=== PATIENT | female | born 1995 | race American Indian/Alaskan Native ===

== ENCOUNTER 2021-09-24 10:48 | Outpatient (CLI) | payer MEDICAID ==
[2021-09-24 11:20] VITALS: BP 113/65
--- NOTE | 2021-09-24 13:42 | Ultrasound Report ---
ULTRASOUND OB VELOCIMETRY UMBILICAL ARTERY HISTORY: Cord arterial Doppler, history of loss of end-diastolic flow TECHNIQUE: Transabdominal ultrasound with color and spectral Doppler imaging COMPARISON: 09/05/2021 FINDINGS: Multiple segments of the umbilical cord were evaluated. heart rate measures 132 bpm. The spectr al Doppler waveforms again show intermittent loss of end-diastolic flow and reversal of flow in some segments of the umbilical cord. The average pulsatility index measures 35.6. Signer Name: Kenny Muñiz Jr, MD Signed: 09/24/2021 1:38 PM Workstation Name: [id number]
--- NOTE | 2021-09-24 14:31 | Ultrasound Report ---
ULTRASOUND BIOPHYSICAL PROFILE ULTRASOUND OB LIMITED INDICATION: bpp/val[facility] well being TECHNIQUE: Transabdominal ultrasound imaging. COMPARISON: 09/05/2021 FINDINGS: breathing movement = 2 Gross body movement = 2 tone = 2 Qualitative amniotic fluid volume = 2 Total biophysical score = 8/8 Amniotic fluid index is 18.9 cm. heart rate is 132 beats per minute. IMPRESSION: biophysical profile /. Signer Name: Kenny Muñiz Jr, MD Signed: 09/24/2021 2:26 PM Workstation Name: [id number]
== END 2021-09-24 14:55 | disposition left against medical advice (07) ==
LOC: TRG 10:48 → APU 10:49 → TRG 14:55
PROVIDERS: ATTEND Obstetrics & Gynecology
DX: Z34.93 Encounter for supervision of normal pregnancy, unspecified, third trimester (principal); Z3A.31 31 weeks gestation of pregnancy
CPT/HCPCS: 59025; 76815; 76819; 76820

== ENCOUNTER 2021-09-26 11:03 | Outpatient (CLI) | payer MEDICAID ==
[2021-09-26 11:34] VITALS: BP 120/75
[2021-09-26 12:16] LABS: Bilirubin,Urine NEG (Negative); Blood,Urine NEG (Negative); Color,Urine Yellow (Yellow); Mucus,Urine FEW /HPF; Protein,Urine <15 mg/dL mg/dL (Negative); Urobilinogen,Urine < 2.0 mg/dL (<2.0)
[2021-09-26] MEDS ORDERED: LACTATED RINGERS 500 ML IV ONE (13:18)
== END 2021-09-26 12:49 | disposition home or self-care (01) ==
LOC: TRG 11:03 → APU 11:06 → TRG 12:49
PROVIDERS: ATTEND Obstetrics & Gynecology
DX: O36.5930 Maternal care for other known or suspected poor fetal growth, third trimester, not applicable or unspecified (principal); Z3A.32 32 weeks gestation of pregnancy
CPT/HCPCS: 59025; 81001

== ENCOUNTER 2021-10-10 15:00 | Outpatient (CLI) | payer MEDICAID ==
[2021-10-09 17:40] LABS: Hematocrit 36.2 % (30.3-42.9); Hemoglobin 11.4 gm/dl (10.1-14.3); Mean Corpuscular HGB Conc 32 % (30-34); Mean Corpuscular Volume 86 fl (79-97); Platelet Count 230 K/mm3 (140-440); Red Blood Count 4.24 M/mm3 (3.65-5.03); Red Cell Distribution Width 15.7 % (13.2-15.2)
[~2021-10-10 15:00] MED LIST: ACETAMINOPHEN 325 MG TAB PO PRN; AMPICILLIN/NS 1 GM/50 ML 1 GM/50 ML BAG IV SCH; AMPICILLIN/NS 2 GM/100 ML 2 GM/100 ML BAG IV ONE; BICITRA ORAL LIQD 30ML PO NR; BUPIVACAINE/PF (0.5%) 5 MG/1 ML 30 ML VIAL INFILTRATI ONE; BUTORPHANOL 2 MG/1 ML INJ IV PRN; CARBOPROST TROMETHAMINE 250 MCG/1 ML INJ IM PRN; DINOPROSTONE 10 MG VAG SUPP VG ONE; FAMOTIDINE 20 MG/2 ML INJ IV NR; HYDROcodone/ACETAMINOPHEN 5-325 MG TAB PO PRN; IBUPROFEN 600 MG TAB PO PRN; IBUPROFEN 800 MG TAB PO PRN; KETOROLAC 30 MG/1 ML INJ IV PRN; KETOROLAC 30 MG/1 ML INJ ONE; LACTATED RINGERS 1,000 ML IV SCH; LACTATED RINGERS 1,000 ML ONE; LANOLIN/ZINC/DIMETHICONE (LANSINOH) 7 GM TP PRN; LIDOCAINE (2%) 20 MG/1 ML VIAL 20 ML MDV INFILTRATI ONE; LOPERAMIDE 2 MG CAP PO PRN; METHYLERGONOVINE MALEATE 0.2 MG/ML VIAL IM PRN; MINERAL OIL 30 ML ORAL LIQD PO PRN; MORPHINE 2 MG/1 ML INJ IV PRN; MORPHINE 4 MG/1 ML INJ IV PRN; NALOXONE 0.4 MG/1 ML INJ IV PRN; NALOXONE 2 MG/2 ML INJ IV PRN; NalbUPHINE 10 MG/1 ML INJ IV PRN; ONDANSETRON 4 MG/2 ML INJ IV PRN; ONDANSETRON 4 MG/2 ML INJ ONE; OXYTOCIN 10 UNIT/1 ML INJ IM PRN; OXYTOCIN DRIP 30 UNITS/500 ML BAG IV SCH; PHENYLEPHRINE 10 MG/1 ML INJ SDV ONE; SODIUM CHLORIDE 0.9% 100 ML ONE; SODIUM CHLORIDE 0.9% IRR 1,500 ML BOTTLE IR ONE; TERBUTALINE 1 MG/1 ML INJ SUB-Q PRN; WATER FOR IRRIG STERILE 1,500 ML BOTTLE IR ONE; WITCH HAZEL/ GLYCERIN PAD TP PRN; ceFAZolin 1 GM VIAL IV ONE; ceFAZolin/Water 2 GM/20 ML 2 GM/20 ML SYRINGE IV ONE; dexAMETHasone 20 MG/5 ML VIAL ONE; ePHEDrine SULFATE 50 MG/1 ML INJ IV PRN; fentaNYL 100 MCG/2 ML INJ IV PRN; fentaNYL-BUPIV 2 MCG/ML-0.125% 200 MCG/100 ML BAG EPIDURAL SCH; miSOPROStol 200 MCG TAB PR PRN; oxyCODONE /ACETAMINOPHEN 5-325MG TAB PO PRN
[2021-10-10] MEDS ORDERED: D5W/LACTATED RINGERS 1,000 ML IV SCH (21:00)
[2021-10-11 12:01] VITALS: BP 112/69
== END 2021-10-10 23:59 | disposition home or self-care (01) ==
LOC: TRG 15:00
PROVIDERS: ATTEND Obstetrics & Gynecology
DX: O36.5930 Maternal care for other known or suspected poor fetal growth, third trimester, not applicable or unspecified (principal); Z3A.34 34 weeks gestation of pregnancy; Z20.822 Contact with and (suspected) exposure to COVID-19
CPT/HCPCS: 36415; 59200; 85014; 85018; 85027; 86850; 86900; 86901; J0690; J1100; J1885; J2370; J2405; J3105; J3490; U0003; J7121